=== PATIENT | male | born 1995 | race Caucasian/White ===

== ENCOUNTER 2017-12-09 00:37 | Emergency (ER) | payer OTHER ==
[~2017-12-09 00:37] MED LIST: AUG500 PO; CLI150 PO; DON PO; FLUT16SP19; NO CURRENT MEDS
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
[2017-12-09] MEDS ORDERED: DIPHTH/TETANUS/ACEL. PERTUSSIS IM ONLY ONE (00:50)
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
[2017-12-09 02:00] VITALS: BP 112/58
[2017-12-09] MEDS ORDERED: CEPH500T7 PO (02:02)
[2017-12-09] MEDS ORDERED: HYDR-4309 PO (02:02)
[2017-12-09] MEDS ORDERED: CEPHALEXIN MONO 500 MG CAP PO ONE (02:05)
== END 2017-12-09 02:15 | disposition home or self-care (01) ==
LOC: ER 00:47
DX: S02.2XXA Fracture of nasal bones, initial encounter for closed fracture (principal); S00.83XA Contusion of other part of head, initial encounter; F10.920 Alcohol use, unspecified with intoxication, uncomplicated; Y90.8 Blood alcohol level of 240 mg/100 ml or more; Y04.8XXA Assault by other bodily force, initial encounter
CPT/HCPCS: 70450; 70486; 72125; 80320; 90715; 99283

== ENCOUNTER 2017-12-15 00:42 | Day surgery (SDC) | payer OTHER ==
[~2017-12-15] VITALS: Ht 162.6 cm; Wt 77.1 kg
[~2017-12-15 00:42] MED LIST changes: +CEPH500T7 PO; +HYDR-4309 PO
[2017-12-15 05:53] VITALS: BP 130/79
[2017-12-15] MEDS ORDERED: FAMOTIDINE 20 MG TAB PO ONE (06:15)
[2017-12-15] MEDS ORDERED: MIDAZOLAM 2 MG/2 ML VIAL IVP ONE (06:15)
[2017-12-15] MEDS ORDERED: MIDAZOLAM 2 MG/2 ML VIAL IVP PRN (06:15)
[2017-12-15] MEDS ORDERED: LIDOCAINE/SOD BICARB 8.4% SYR ID ONE (06:15)
[2017-12-15] MEDS ORDERED: NORMOSOL R SOLN(*) 1000 ML BAG 1,000 ML IV PRN (06:15)
[2017-12-15] MEDS ORDERED: BACITRACIN OINT 15 GM TUBE TP ONE (06:35)
[2017-12-15] MEDS ORDERED: MIDAZOLAM 2 MG/2 ML VIAL ONE (06:35)
[2017-12-15] MEDS ORDERED: OXYMETAZOLINE SPRAY 15 ML BTL ONE (06:35)
[2017-12-15] MEDS ORDERED: fentaNYL CITR 100 MCG/2 ML AMP ONE ×2 (06:35→07:49)
[2017-12-15] MEDS ORDERED: ONDANSETRON 4 MG/2 ML VIAL ONE (06:36)
[2017-12-15] MEDS ORDERED: PROPOFOL EMUL(*) 10MG/ML 20 ML 20 ML ONE (06:36)
[2017-12-15] MEDS ORDERED: DEXAMETHASONE SOD PHOS 10MG/ML ONE (06:36)
[2017-12-15] MEDS ORDERED: LIDOCAINE MPF 1% 5 ML VIAL ONE (06:36)
[2017-12-15] MEDS ORDERED: ceFAZolin(*) 2GM/D5W 50ML 50 ML IVPB ONE (07:05)
[2017-12-15] MEDS ORDERED: KETAMINE HCL 200 MG/20 ML MDV ONE (07:07)
[2017-12-15] MEDS ORDERED: HYDR-4309 PO (07:44)
[2017-12-15] MEDS ORDERED: CEFU500T10 PO (07:59)
[2017-12-15] MEDS ORDERED: APAP/HYDROCODONE 325/5 TAB ONE (08:29)
[2017-12-15 08:45] VITALS: BP 104/49
[2017-12-15 09:00] VITALS: BP 117/74
[2017-12-15 09:15] VITALS: BP 118/62
[2017-12-15 09:31] VITALS: BP 112/63
[2017-12-15 09:33] VITALS: BP 105/59
--- NOTE | 2017-12-15 14:02 | OPERATIVE REPORT 1 ---
EVENT DATE: December 15, 2017 SURGEON: Bo Sykes MD ANESTHESIOLOGIST: Danny Thibodeaux MD ANESTHESIA: LMA PROCEDURE Closed reduction of a nasal fracture. PREOPERATIVE DIAGNOSIS Nasal fracture. POSTOPERATIVE DIAGNOSIS Nasal fracture. INDICATIONS Please refer to the preoperative note. DESCRIPTION OF PROCEDURE The patient was positively identified in the preoperative area. He was accompanied there by his father. Risks were again explained, including, but not limited to, bleeding, infection, poor cosmetic result, and those associated with anesthesia. He acknowledged understanding of those risks. He was then brought back to the operative suite, laid supine on the operative table and anesthesia was administered. Once asleep, the patient was positioned, then prepped and draped in usual sterile fashion. The patient had a depressed nasal fracture. This was manually reduced into the midline with a Cain bar. A rigid [place] splint was then placed externally. The patient was then turned to anesthesia for emergence. ESTIMATED BLOOD LOSS 10 mL. COMPLICATIONS No complications. MTDD
== END 2017-12-15 08:35 | disposition home or self-care (01) ==
LOC: OR 00:42
PROVIDERS: ATTEND Otolaryngology
DX: S02.2XXA Fracture of nasal bones, initial encounter for closed fracture (principal)
CPT/HCPCS: 21315; J1100; J2001; J2250; J2704; J3010; J3490; J0690; J2405

== ENCOUNTER 2019-02-15 21:32 | Emergency (ER) | payer OTHER ==
[~2019-02-15 21:32] MED LIST changes: +CEFU500T10 PO; -HYDR-4309 PO; +HYDR-653 PO
--- NOTE | 2019-02-15 21:34 | ER Report ---
History and Physical Time Seen By MD: 21:31 HPI/ROS CHIEF COMPLAINT: Vomiting HISTORY OF PRESENT ILLNESS: 23-year-old male presents to the ER after vomiting all day long. He's been unable to keep anything down since midnight last night. He began vomiting this morning. He's tried to drink water several times and it always comes back up. He's had no diarrhea, fever or chills. He notes occasional clamminess after vomiting. Patient was out eating barbecue last night. He does not think he ate any bad food. He denies exposure to ill con tacts. He notes occasional crampy abdominal pain without exacerbating or alleviating factors. Patient denies dysuria. Patient's had no previous abdominal surgery. REVIEW OF SYSTEMS: Respiratory: No cough, no dyspnea. Cardiovascular: No chest pain, no palpitations. Gastrointestinal: As above Musculoskeletal: No back pain. Allergies: Coded Allergies: No Known Allergies (Unverified Allergy, Mild, 02/15/19) Home Meds Active Scripts Hydrocodone Bit/Acetaminophen (HYDROCODON-ACETAMINOPHEN 5-325) 1 Each Tablet, 1 EACH PO Q4-6H PRN for PAIN, #12 TAKE ONE TABLET BY MOUTH EVERY 4-6 HOURS NEEDED FOR PAIN Prov:SHIELA GURADADO DO 02/15/19 Ondansetron 4 Mg Odt (ONDANSETRON 4 MG ODT) 4 Mg Tab.rapdis, 4 MG PO Q6H PRN for NAUSEA/VOMITING, #12 TAB Prov:SHIELA GUARDADO DO 02/15/19 Promethazine Hcl (PROMETHAZINE HCL) 25 Mg Tablet, 25 MG PO Q4H PRN for NAUSEA/VOMITING, #14 TAB Prov:SHIELA GUARDADO DO 02/15/19 Fluticasone Prop 50 Mcg Ns (FLONASE 50 MCG NS) 16 Gm Jud.susp, 2 SPRAYS NA QDAY for 30 Days, #1 BOT Prov:ANTOLIN SANTOS JR, MD 07/18/17 Reported Medications Cefuroxime Axetil (CEFUROXIME) 500 Mg Tablet, 500 MG PO BID, #16 TAB 0 Refills 12/15/17 Hydrocodone Bit/Acetaminophen (NORCO 5-325 TABLET) 1 Each Tablet, 1-2 EACH PO Q4D PRN for PAIN, #30 TAB 0 Refills 12/15/17 Hx Smoking: Yes Smoking Status: Former Smoker Exposure to Second Hand Smoke?: No Hx Alcohol Use: Yes Constitutional Vital Sign - Last 24 Hours 02/15/19 02/15/19 02/15/19 02/15/19 21:38 21:39 21:47 22:00 Temp 99.4 Pulse 89 82 Resp 14 B/P (MAP) 138/84 (102) 138/84 127/55 (79) Pulse Ox 91 88 O2 Delivery Room Air 02/15/19 02/15/19 02/15/19 02/15/19 22:02 22:17 22:30 22:32 Pulse 92 89 ??? B/P (MAP) 102/57 (72) Pulse Ox 91 90 Physical Exam General Appearance: The patient is alert, has no immediate need for airway protection and no current signs of toxicity. Vital signs stable, low-grade temp 99 for HEENT: Pupils equal and round no injection. Oropharynx without redness or exudate, mucous. Membranes are moist Respiratory: Chest is non tender, lungs are clear to auscultation. Cardiac: regular rate and rhythm Gastrointestinal: Abdomen is soft and non tender, no masses, bowel sounds normal. Musculoskeletal: Neck: Neck is supple and non tender. Extremities have full range of motion and are non tender. Skin: No rashes or lesions. DIFFERENTIAL DIAGNOSIS: After history and physical exam differential diagnosis was considered for abdominal pain including but not limited to appendicitis, cholecystitis, gastroenteritis, food poisoning, viral syndrome gastritis and urinary tract infection. Medical Decision Making Data Points Result Diagram: 02/15/19215002/15/192150 Laboratory Hematology Test 02/15/19 21:51 02/15/19 22:33 Red Blood Count 5.83 M/uL (4.00-5.60) Mean Corpuscular Volume 95.1 fL (80.0-96.0) Mean Corpuscular Hemoglobin 33.1 pg (26.0-33.0) Mean Corpuscular Hemoglobin Concent 34.8 g/dL (32.0-36.0) Red Cell Distribution Width 13.0 % (11.5-14.5) Mean Platelet Volume 8.8 fL (7.2-11.1) Neutrophils (%) (Auto) 92.8 % (39.4-72.5) Lymphocytes (%) (Auto) 2.9 % (17.6-49.6) Monocytes (%) (Auto) 4.1 % (4.1-12.4) Eosinophils (%) (Auto) 0.0 % (0.4-6.7) Basophils (%) (Auto) 0.2 % (0.3-1.4) Nucleated RBC Relative Count (auto) 0.0 /100WBC Neutrophils # (Auto) 15.2 K/uL (2.0-7.4) Lymphocytes # (Auto) 0.5 K/uL (1.3-3.6) Monocytes # (Auto) 0.7 K/uL (0.3-1.0) Eosinophils # (Auto) 0.0 K/uL (0.0-0.5) Basophils # (Auto) 0.0 K/uL (0.0-0.1) Nucleated RBC Absolute Count (auto) 0.00 K/uL Sodium Level 134 mmol/L (137-145) Potassium Level 4.2 mmol/L (3.5-5.0) Chloride Level 91 mmol/L (98-107) Carbon Dioxide Level 17 mmol/L (22-30) Blood Urea Nitrogen 15 mg/dl (9-21) Creatinine 1.10 mg/dl (0.66-1.25) Glomerular Filtration Rate Calc > 60.0 Random Glucose 177 mg/dl (75-110) Calcium Level 9.6 mg/dl (8.4-10.2) Total Bilirubin 1.5 mg/dl (0.2-1.3) Aspartate Amino Transf (AST/SGOT) 34 U/L (0-35) Alanine Aminotransferase (ALT/SGPT) 36 U/L (0-56) Alkaline Phosphatase 73 U/L (0-126) Total Protein 8.1 g/dl (6.3-8.2) Albumin 5.3 g/dl (3.5-5.0) Amylase Level 183 U/L (0-110) Lipase 427 U/L (23-300) Urine Color Yellow Urine Clarity Clear Urine pH 5.0 pH (4.8-9.5) Urine Specific [place] 1.019 Urine Protein Negative mg/dL (NEGATIVE) Urine Glucose (UA) Negative mg/dL (NEGATIVE) Urine Ketones 80 mg/dL (NEGATIVE) Urine Blood Negative (NEGATIVE) Urine Nitrite Negative (NEGATIVE) Urine Bilirubin Negative (NEGATIVE) Urine Urobilinogen Negative mg/dL (0.2-1.9) Urine Leukocyte Esterase Negative (NEGATIVE) Urine RBC <1 /HPF (0-2/HPF) Urine WBC 3 /HPF (0-5/HPF) Urine Squamous Epithelial Cells None /LPF (</=FEW) Urine Bacteria Negative /HPF (NONE-FEW) Urine Hyaline Casts Few /LPF (NONE-FEW) Urine Mucus None /HPF (NONE-FEW) Chemistry Test 02/15/19 21:51 02/15/19 22:33 White Blood Count 16.4 k/uL (4.5-11.0) Red Blood Count 5.83 M/uL (4.00-5.60) Hemoglobin 19.3 g/dL (14.0-18.0) Hematocrit 55.4 % (42.0-52.0) Mean Corpuscular Volume 95.1 fL (80.0-96.0) Mean Corpuscular Hemoglobin 33.1 pg (26.0-33.0) Mean Corpuscular Hemoglobin Concent 34.8 g/dL (32.0-36.0) Red Cell Distribution Width 13.0 % (11.5-14.5) Platelet Count 227 K/uL (150-450) Mean Platelet Volume 8.8 fL (7.2-11.1) Neutrophils (%) (Auto) 92.8 % (39.4-72.5) Lymphocytes (%) (Auto) 2.9 % (17.6-49.6) Monocytes (%) (Auto) 4.1 % (4.1-12.4) Eosinophils (%) (Auto) 0.0 % (0.4-6.7) Basophils (%) (Auto) 0.2 % (0.3-1.4) Nucleated RBC Relative Count (auto) 0.0 /100WBC Neutrophils # (Auto) 15.2 K/uL (2.0-7.4) Lymphocytes # (Auto) 0.5 K/uL (1.3-3.6) Monocytes # (Auto) 0.7 K/uL (0.3-1.0) Eosinophils # (Auto) 0.0 K/uL (0.0-0.5) Basophils # (Auto) 0.0 K/uL (0.0-0.1) Nucleated RBC Absolute Count (auto) 0.00 K/uL Glomerular Filtration Rate Calc > 60.0 Calcium Level 9.6 mg/dl (8.4-10.2) Total Bilirubin 1.5 mg/dl (0.2-1.3) Aspartate Amino Transf (AST/SGOT) 34 U/L (0-35) Alanine Aminotransferase (ALT/SGPT) 36 U/L (0-56) Alkaline Phosphatase 73 U/L (0-126) Total Protein 8.1 g/dl (6.3-8.2) Albumin 5.3 g/dl (3.5-5.0) Amylase Level 183 U/L (0-110) Lipase 427 U/L (23-300) Urine Color Yellow Urine Clarity Clear Urine pH 5.0 pH (4.8-9.5) Urine Specific [place] 1.019 Urine Protein Negative mg/dL (NEGATIVE) Urine Glucose (UA) Negative mg/dL (NEGATIVE) Urine Ketones 80 mg/dL (NEGATIVE) Urine Blood Negative (NEGATIVE) Urine Nitrite Negative (NEGATIVE) Urine Bilirubin Negative (NEGATIVE) Urine Urobilinogen Negative mg/dL (0.2-1.9) Urine Leukocyte Esterase Negative (NEGATIVE) Urine RBC <1 /HPF (0-2/HPF) Urine WBC 3 /HPF (0-5/HPF) Urine Squamous Epithelial Cells None /LPF (</=FEW) Urine Bacteria Negative /HPF (NONE-FEW) Urine Hyaline Casts Few /LPF (NONE-FEW) Urine Mucus None /HPF (NONE-FEW) Urinalysis Test 02/15/19 22:33 Urine Color Yellow Urine Clarity Clear Urine pH 5.0 pH (4.8-9.5) Urine Specific [place] 1.019 Urine Protein Negative mg/dL (NEGATIVE) Urine Glucose (UA) Negative mg/dL (NEGATIVE) Urine Ketones 80 mg/dL (NEGATIVE) Urine Blood Negative (NEGATIVE) Urine Nitrite Negative (NEGATIVE) Urine Bilirubin Negative (NEGATIVE) Urine Urobilinogen Negative mg/dL (0.2-1.9) Urine Leukocyte Esterase Negative (NEGATIVE) Urine RBC <1 /HPF (0-2/HPF) Urine WBC 3 /HPF (0-5/HPF) Urine Squamous Epithelial Cells None /LPF (</=FEW) Urine Bacteria Negative /HPF (NONE-FEW) Urine Hyaline Casts Few /LPF (NONE-FEW) Urine Mucus None /HPF (NONE-FEW) ED Course/Re-evaluation Clinical Indication for ER IV: Hydration, IV Access ED Course Patient was admitted to an examination room. H&P was done. The differential diagnoses was considered. On conical examination. Patient has epigastric pain. He's had persistent vomiting for several hours. He is treated with IV fluid hydration. Diagnostic studies are sent off. Patient laboratory studies show an elevated white blood cell count of 16,000 with a mild elevation of his lipase suggesting mild pancreatitis. Patient's discharged home on Zofran, and hydrocodone for pain relief. He is advised a clear liquid diet for 48 hours. P atient's advised to follow-up with primary care for outpatient ultrasound of his right upper quadrant and CT scan to better delineate the etiology of his pancreatitis. Decision to Disposition Date: Feb 15, 2019 Decision to Disposition Time: 22:20 Depart Departure Latest Vital Signs Vital Signs Date Time Temp Pulse Resp B/P (MAP) Pulse Ox O2 Delivery O2 Flow Rate FiO2 02/15/19 22:32 ??? 02/15/19 22:30 102/57 (72) 02/15/19 22:17 90 02/15/19 21:39 99.4 14 Room Air Impression: Primary Impression: Pancreatitis Condition: Improved Disposition: HOME OR SELF-CARE Referrals: ALEKSANDRA SPANN MD, FARRUKH MD New Scripts Hydrocodone Bit/Acetaminophen (HYDROCODON-ACETAMINOPHEN 5-325) 1 Each Tablet 1 EACH PO Q4-6H PRN for PAIN, #12 TAKE ONE TABLET BY MOUTH EVERY 4-6 HOURS NEEDED FOR PAIN Prov: SHIELA GUARDADO DO 02/15/19 Ondansetron 4 Mg Odt (ONDANSETRON 4 MG ODT) 4 Mg Tab.rapdis 4 MG PO Q6H PRN for NAUSEA/VOMITING, #12 TAB Prov: SHIELA GUARDADO DO 02/15/19 Promethazine Hcl (PROMETHAZINE HCL) 25 Mg Tablet 25 MG PO Q4H PRN for NAUSEA/VOMITING, #14 TAB Prov: SHIELA GUARDADO DO 02/15/19 Patient Instructions: Pancreatitis (ED) Additional Instructions: Follow-up with your primary care doctor [facility] or the new doctor listed on your paperwork You will need an ultrasound and potentially a CAT scan to better delineate the cause of your pancreatitis Problem Qualifiers Primary Impression: Pancreatitis Chronicity: acute Pancreatitis type: unspecified pancreatitis type Acute pancreatitis complication: unspecified Qualified Codes: K85.90 - Acute pancreatitis without necrosis or infection, unspecified SHIELA GUARDADO DO Feb 15, 2019 21:34
[2019-02-15] MEDS ORDERED: NS(*) 0.9% 1000 ML BAG 1,000 ML IV ONE (21:43)
[2019-02-15] MEDS ORDERED: ONDANSETRON 4 MG/2 ML VIAL IVP ONE (21:45)
[2019-02-15] MEDS ORDERED: PROMETHAZINE 25 MG/ML 1 ML AMP IVP ONE (21:45)
[2019-02-15 22:02] LABS: PLATELET COUNT, AUTOMATED 227 K/uL (150-450)
[2019-02-15 22:30] VITALS: BP 102/57
[2019-02-15] MEDS ORDERED: LOR5/325 PO (22:49)
[2019-02-15] MEDS ORDERED: ONDA4TAB9 PO (22:49)
[2019-02-15] MEDS ORDERED: PROM-110 PO (22:49)
[2019-02-15] MEDS ORDERED: PROMETHAZINE HCL 25 MG TAB TH 2 TAB/BOTTLE PO ONE (22:50)
[2019-02-15] MEDS ORDERED: ONDANSETRON 4 MG ODT TH SL ONE (22:50)
[2019-02-15] MEDS ORDERED: ACET/HYDROC 5/325MG TH ER ONLY 2 TAB/BOTTLE PO ONE (22:50)
== END 2019-02-15 22:57 | disposition home or self-care (01) ==
LOC: ER 21:36
DX: K85.90 Acute pancreatitis without necrosis or infection, unspecified (principal); Z79.899 Other long term (current) drug therapy; Z87.891 Personal history of nicotine dependence
CPT/HCPCS: 81001; 82150; 83690; 85025; 96374; 99283; J2405; J2550; J7030; 82040; 82247; 82310; 82374; 82435; 82565; 82947; 84075; 84132; 84155; 84295; 84450; 84460; 84520

== ENCOUNTER 2019-03-10 09:05 | Emergency (ER) | payer OTHER ==
[~2019-03-10 09:05] MED LIST changes: +LOR5/325 PO; +ONDA4TAB9 PO; +PROM-110 PO
--- NOTE | 2019-03-10 09:09 | ER Report ---
History and Physical Time Seen By MD: 09:05 HPI/EVELIO CHIEF COMPLAINT: BH evaluation HISTORY OF PRESENT ILLNESS: Patient is a 23-year-old male with no prior psychiatric evaluations or admissions with past history for suicidal ideation with plan tissue himself with a rapid he owns. He is brought into the emergency department accompanied by his mother and younger brother with concerns of suicidal ideation. Patient states he's had thoughts of suicide with plan to shoot himself that increased when he is drinking. Patient states he was drinking last evening. 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 He states that approximately one year ago he had a prior suicide attempt by attempting to shoot himself although did not actually the trigger. He states that he drinks heavily and binge drinks and once he starts drinking he cannot stop. He denies any significant past medical history other than prior ER evaluation for mild pancreatitis likely again due to alcohol use. Patient is single and currently lives by himself. REVIEW OF SYSTEMS: Constitutional: No fever, no chills. Eyes: No discharge. ENT: No sore throat. Cardiovascular: No chest pain, no palpitations. Respiratory: No cough, no shortness of breath. Gastrointestinal: No abdominal pain, no vomiting. Musculoskeletal: No back pain. Skin: No rashes. Neurological: No headache. Psych: Suicidal thoughts Allergies: Coded Allergies: No Known Allergies (Unverified Allergy, Mild, 03/10/19) Home Meds Discontinued Reported Medications Cefuroxime Axetil (CEFUROXIME) 500 Mg Tablet, 500 MG PO BID, #16 TAB 0 Refills 12/15/17 Hydrocodone Bit/Acetaminophen (NORCO 5-325 TABLET) 1 Each Tablet, 1-2 EACH PO Q4D PRN for PAIN, #30 TAB 0 Refills 12/15/17 Discontinued Scripts Hydrocodone Bit/Acetaminophen (HYDROCODON-ACETAMINOPHEN 5-325) 1 Each Tablet, 1 EACH PO Q4-6H PRN for PAIN, #12 TAKE ONE TABLET BY MOUTH EVERY 4-6 HOURS NEEDED FOR PAIN Prov:SHIELA GUARDADO DO 02/15/19 Ondansetron 4 Mg Odt (ONDANSETRON 4 MG ODT) 4 Mg Tab.rapdis, 4 MG PO Q6H PRN for NAUSEA/VOMITING, #12 TAB Prov:SHIELA GUARDADO DO 02/15/19 Promethazine Hcl (PROMETHAZINE HCL) 25 Mg Tablet, 25 MG PO Q4H PRN for NAUSEA/VOMITING, #14 TAB Prov:SHIELA GUARDADO DO 02/15/19 Fluticasone Prop 50 Mcg Ns (FLONASE 50 MCG NS) 16 Gm [place].susp, 2 SPRAYS NA QDAY for 30 Days, #1 BOT Prov:ANTOLIN SANTOS JR, MD 07/18/17 Past Medical/Surgical History History of pancreatitis Hx Smoking: Yes Smoking Status: Former Smoker Exposure to Second Hand Smoke?: No Hx Substance Use Disorder: No Hx Alcohol Use: Yes Constitutional Vital Sign - Last 24 Hours 03/10/19 09:08 Temp 97.6 Pulse 91 Resp 16 B/P (MAP) 140/91 Pulse Ox 98 O2 Delivery Room Air Physical Exam General/Constitutional: Patient is awake, alert, nontoxic and in no acute respiratory distress. Head: Normocephalic and atraumatic. Eyes: Conjunctival clear, Pupils are equal and reactive to light. Sclera are clear and anicteric. Ears:External canals are clear. Tympanic membranes are clear with normal l andmarks and light reflex. Nares: No rhinorrhea or bleeding. Turbinates are pink and moist. Oropharyngeal: Mucous membranes are moist. There is no pharyngeal erythema or exudate. There are no palatal petechiae. Uvula is midline and symmetrical. Neck: Supple, no adenopathy. Cardiovascular: Heart is regular rate and rhythm without audible murmurs, rubs or gallops. Pulmonary: Lungs are clear to auscultation bilaterally. There are no wheezes, rales, or rhonchi. Chest rise is symmetrical Abdomen: Soft, nontender, no guarding or peritoneal signs. Extremities: No gross deformities, No peripheral cyanosis. Able to move all 4 extremities. Patient does have bruises in multiple stages of eruption to the upper extremities back also patient does appear to hear well healed superficial lacerations to forearms Neuro: Alert and oriented X3 Skin: No rashes, skin is warm dry and well perfused. Psych: Patient with suicidal ideation plan to shoot himself with a weapon that he currently owns. Patient is tearful and somber so it is congruent with affect. His thought process is logical and goal-directed. He is cooperative and is aware of the seriousness of his thought process. He does not currently appear intoxicated. He does not seem to be responding to any internal stimuli. Medical Decision Making Data Points Result Diagram: 03/10/19 1002 03/10/19 1002 Laboratory Hematology Test 03/10/19 10:02 White Blood Count 8.6 k/uL (4.5-11.0) Red Blood Count 5.34 M/uL (4.00-5.60) Hemoglobin 17.8 g/dL (14.0-18.0) Hematocrit 50.5 % (42.0-52.0) Mean Corpuscular Volume 94.6 fL (80.0-96.0) Mean Corpuscular Hemoglobin 33.3 pg (26.0-33.0) H Mean Corpuscular Hemoglobin Concent 35.2 g/dL (32.0-36.0) Red Cell Distribution Width 13.3 % (11.5-14.5) Platelet Count 215 K/uL (150-450) Mean Platelet Volume 8.9 fL (7.2-11.1) Neutrophils (%) (Auto) 68.4 % (39.4-72.5) Lymphocytes (%) (Auto) 21.8 % (17.6-49.6) Monocytes (%) (Auto) 8.0 % (4.1-12.4) Eosinophils (%) (Auto) 1.3 % (0.4-6.7) Basophils (%) (Auto) 0.5 % (0.3-1.4) Nucleated RBC Relative Count (auto) 0.1 /100WBC Neutrophils # (Auto) 5.9 K/uL (2.0-7.4) Lymphocytes # (Auto) 1.9 K/uL (1.3-3.6) Monocytes # (Auto) 0.7 K/uL (0.3-1.0) Eosinophils # (Auto) 0.1 K/uL (0.0-0.5) Basophils # (Auto) 0.0 K/uL (0.0-0.1) Nucleated RBC Absolute Count (auto) 0.01 K/uL Chemistry Test 03/10/19 10:02 Sodium Level 138 mmol/L (137-145) Potassium Level 3.7 mmol/L (3.5-5.0) Chloride Level 105 mmol/L (98-107) Carbon Dioxide Level 20 mmol/L (22-30) Blood Urea Nitrogen 10 mg/dl (9-21) Creatinine 0.80 mg/dl (0.66-1.25) Glomerular Filtration Rate Calc > 60.0 Random Glucose 98 mg/dl (75-110) Calcium Level 8.6 mg/dl (8.4-10.2) Magnesium Level 2.1 mg/dl (1.7-2.2) Total Bilirubin 0.4 mg/dl (0.2-1.3) Aspartate Amino Transf (AST/SGOT) 57 U/L (0-35) Alanine Aminotransferase (ALT/SGPT) 38 U/L (0-56) Alkaline Phosphatase 70 U/L (0-126) Total Protein 7.1 g/dl (6.3-8.2) Albumin 4.6 g/dl (3.5-5.0) Toxicology Test 03/10/19 10:02 03/10/19 10:18 Salicylates Level < 10 mg/L Salicylate Last Dose Date unk Acetaminophen Level < 10 ug/ml Serum Alcohol 104 mg/dl Urine Opiates Screen Negative Urine Barbiturates Screen Negative Ur Tricyclic Antidepressants Screen Negative Urine Phencyclidine Screen Negative Urine Amphetamines Screen Negative Urine Benzodiazepines Screen Negative Urine Cocaine Screen Negative Urine Cannabinoids Screen Positive Urinalysis Test 03/10/19 10:18 Urine Color Yellow Urine Clarity Clear Urine pH 5.0 pH (4.8-9.5) Urine Specific [place] 1.018 Urine Protein Negative mg/dL (NEGATIVE) Urine Glucose (UA) Negative mg/dL (NEGATIVE) Urine Ketones Trace mg/dL (NEGATIVE) Urine Blood Negative (NEGATIVE) Urine Nitrite Negative (NEGATIVE) Urine Bilirubin Negative (NEGATIVE) Urine Urobilinogen Negative mg/dL (0.2-1.9) Urine Leukocyte Esterase Negative (NEGATIVE) Urine RBC <1 /HPF (0-2/HPF) Urine WBC 3 /HPF (0-5/HPF) Urine Squamous Epithelial Cells Few /LPF (</=FEW) Urine Bacteria Negative /HPF (NONE-FEW) Urine Hyaline Casts Few /LPF (NONE-FEW) Urine Mucus None /HPF (NONE-FEW) ED Course/Re-evaluation ED Course 03/10/2019 9:29:55 am patient is high risk for self-harm he is agreeable to voluntary admission however if this were to change I would step in and intervene and do a title 25. We will perform medical screening examination along with blood work and then I will call to discuss the case with the on-call psychiatrist. Decision to Disposition Date: Mar 10, 2019 Decision to Disposition Time: 11:26 Depart Departure Latest Vital Signs Vital Signs Date Time Temp Pulse Resp B/P (MAP) Pulse Ox O2 Delivery O2 Flow Rate FiO2 03/10/19 09:08 97.6 91 16 140/91 98 Room Air Impression: Primary Impression: Alcohol intoxication Additional Impression: Suicidal intent Condition: Improved Disposition: [facility] (To Dr Rogel) Problem Qualifiers Primary Impression: Alcohol intoxication Complication of substance-induced condition: uncomplicated Qualified Codes: F10.920 - Alcohol use, unspecified with intoxication, uncomplicated MATEUSZ HERNÁNDEZ MD Mar 10, 2019 09:09
[2019-03-10 10:17] LABS: PLATELET COUNT, AUTOMATED 215 K/uL (150-450)
--- NOTE | 2019-03-10 10:27 | EKG ---
FACILITY: [facility] PATIENT NAME: SUSANNE ORTEGA : [id number] MR: [id number] V: [id number] EXAM DATE: ORDERING PHYSICIAN: MATEUSZ HERNÁNDEZ TECHNOLOGIST: JIMMY Test Reason : PSYCH Blood Pressure : / mmHG Vent. Rate : 071 BPM Atrial Rate : 071 BPM P-R Int : 148 ms QRS Dur : 096 ms QT Int : 372 ms P-R-T Axes : 054 100 025 degrees QTc Int : 404 ms Normal sinus rhythm Poor R wave progression Abnormal ECG No previous ECGs available Confirmed by LATISHA SUMMERS ([id number]) on 03/10/2019 9:49:42 PM Referred By: BETTY Confirmed By:LATSIHA SUMMERS
== END 2019-03-10 11:58 ==
LOC: ER 09:07 → EDBEDREQSVC 11:32 → ER 11:58
DX: F10.920 Alcohol use, unspecified with intoxication, uncomplicated (principal); R45.851 Suicidal ideations; R94.31 Abnormal electrocardiogram [ECG] [EKG]
CPT/HCPCS: 80305; 80320; 80329; 81001; 82040; 82247; 82310; 82374; 82435; 82565; 82947; 83735; 84075; 84132; 84155; 84295; 84443; 84450; 84460; 84520; 85025; 93005; 99284

== ENCOUNTER 2019-03-10 11:36 | Inpatient (IN) | payer OTHER ==
[~2019-03-10] VITALS: Ht 162.6 cm; Wt 64.4 kg
[2019-03-10 11:50] VITALS: BP 108/66
[2019-03-10] MEDS ORDERED: ACETAMINOPHEN 325 MG TAB PO PRN (12:15)
[2019-03-10] MEDS ORDERED: IBUPROFEN 600 MG TAB PO PRN (12:15)
[2019-03-10] MEDS ORDERED: MAG HYD/AL HYD/SIMETH 30ML UDC PO PRN (12:15)
[2019-03-10] MEDS: FLUoxetine HCL 20 MG CAP PO SCH (13:54)
[2019-03-10 16:08] VITALS: BP 138/60
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
[2019-03-11 06:08] VITALS: BP 118/64
[2019-03-11] MEDS: FLUoxetine HCL 20 MG CAP PO SCH (08:14)
[2019-03-11] MEDS: MULTIVITAMINS TAB PO SCH (08:14)
[2019-03-11] MEDS: FOLIC ACID 1 MG TAB PO SCH (08:14)
[2019-03-11] MEDS: THIAMINE HCL 100 MG TAB PO SCH (08:14)
[2019-03-11 11:25] VITALS: BP 128/67
--- NOTE | 2019-03-11 11:41 | BHS Progress Note ---
[facility] - Subjective Progress Notes Subjective Patient cooperative today and interacting well with his mother as well as behavioral treatment team staff. Patient reports his mood is improving and rates it a 7/10 today to the good. Patient tearful when reflecting on events that lead up to admission. Alcohol withdrawal not seemingly clinically relevant. Patient was able to discuss the possible negatives of alcohol and cannabis in his life, but does seem not to credit substance use with the amount of negative influence that they have in his life. [facility] No other concerns today, will likely discharge tomorrow. Suicidal Ideation: None Homicidal Ideation: None [facility] - Objective Physical Exam Vital Signs Vital Signs Date Time Temp Pulse Resp B/P (MAP) Pulse Ox O2 Delivery O2 Flow Rate FiO2 03/11/19 11:25 98.6 62 128/67 (87) 96 Room Air 03/10/19 16:08 12 Muscle Strength and Tone: WNL Gait and Station: Steady [facility] Medications Reviewed: Side Effects, Benefits of Medication, Risks Allergies Reviewed: Yes Mental Status Exam General Appearance: Casual, Well Groomed, Good Eye Contact, Cooperative, Polite, Good Interaction, Tearful (breifly); No Psychomotor Agitation, No Psychomotor Retardation, No Bizarre Mannerisms, No Tics Speech: Clear, Spontaneous, Normal Rate, Normal Rhythm, Normal Volume, Normal Tone; No Slurred, No Garbled, No Rambling, No Inappropriate Mood: Dysthmic/Depressed (reports mood improving quickly in absence of alcohol use. ) Affect: Full and Appropriate, Calm; No Withdrawn, No Tearful, No Anxious, No Agitated Thought Process: Organized, Logical, Goal Directed; No Loose Associations, No Flight of Ideas Thought Content: Suicidal Ideation (denies today); No Homicidal Ideation, No Delusions, No Auditory Halllucinations (Mother reports mild psychotic symptoms when patient under the influence of alcohol and cannabis. ), No Visual Halluc inations, No Thought Broadcasting, No Ideas of Reference, No Obsessions, No Compulsions Sensorium: Clear Cognition: Alert & Oriented-Person, Alert & Oriented-Place, Alert & Oriented- Time, [id number] Memory: Immediate, Recent, Remote Intelligence: Average Insight Judgment: Fair (improving and deemed intact in the absence of substance use. ) [facility] Assessment and Plan [id number] Encounter Date: Mar 11, 2019 [id number] Encounter Time: 09:30 [facility] Plan: Necessary Precautions, Individual/Group Therapy, Admin/Titrate Meds, Educate Patient Tobacco Medications: Started Multpiple Antipsychotics Used: No Problems: (1) Substance induced mood disorder Status: Acute (2) Alcohol use disorder, severe, in controlled environment Status: Chronic (3) Cannabis use disorder, severe, in controlled environment Status: Chronic (4) Persistent depressive disorder Status: Chronic Condition 1. continue treatment. 2. no medication changes. 3. AA to visit today. XOCHILT QUINTEROS MD Mar 11, 2019 11:41
[2019-03-11] MEDS ORDERED: NICOTINE POLACRILEX 2 MG GUM PO PRN (12:25)
[2019-03-11 20:11] VITALS: BP 130/68
[2019-03-12 03:43] VITALS: BP 123/62
[2019-03-12] MEDS: FOLIC ACID 1 MG TAB PO SCH (08:10)
[2019-03-12] MEDS: FLUoxetine HCL 20 MG CAP PO SCH (08:10)
[2019-03-12] MEDS: THIAMINE HCL 100 MG TAB PO SCH (08:10)
[2019-03-12] MEDS: MULTIVITAMINS TAB PO SCH (08:10)
[2019-03-12] MEDS ORDERED: FLUO-202 PO (09:01)
[2019-03-12] MEDS ORDERED: MULT-1379 PO (09:02)
[2019-03-12] MEDS ORDERED: NICO-219 BC (09:03)
[2019-03-12] MEDS ORDERED: TRAZ150T8 PO (09:03)
--- NOTE | 2019-03-14 11:00 | SCHAAF DISCHARGE ---
DATE OF ADMISSION: March 10, 2019 DATE OF DISCHARGE: March 12, 2019 ATTENDING PHYSICIAN Thanh Hernandez MD Patient was seen at approximately 0830 hours on the a.m. of March 12, 2019 for note concerning this dictation. FINAL DIAGNOSES * Alcohol use disorder, severe. * Persisting depressive disorder. * Cannabis use disorder, moderate. * Substance-induced mood disorder related to intoxication of cannabis and alcohol. * Patient having supportive relationship with mother. REASON FOR ADMISSION This is a pleasant 23-year-old male who has a significant substance-induced mood disorder component to alcohol intoxication as well as cannabis use. Patient was admitted on March 10, 2019 through the emergency room. Patient has a history of substance-induced mood disorder as well as likely underlying persisting depressive disorder. Patient notably had a past medical history of recent pancreatitis as well and resumed drinking. Please see H and P for full details regarding admission. Patient's alcohol withdrawal was treated to completion with diazepam per [facility] protocol. Patient remained on Prozac and Trazodone was started to help with sleep as well as persisting depressive disorder as well. Patient was discharged to home. PHYSICAL EXAMINATION Please see emergency room note. Notable for intoxicated 23-year old male. Vital signs at the time of admission: Temperature 97.6, pulse 91, respiratory rate 16, blood pressure 140/91 and pulse oximetry 98% on room air. Vital signs at the time of discharge from [facility]: Temperature 98.4, pulse 53, respiratory rate 12, blood pressure 123/62 and pulse oximetry 94% on room air. LABORATORY DATA TSH 2.33, in normal range at time of admission. MCH elevated slightly at 33.3 on CBC at time of admission. Otherwise, unremarkable CBC. CMP notable only for AST elevated mildly at 57. Urinalysis showed trace ketones present. Otherwise, unremarkable. Toxicology screen positive for cannabis with a serum alcohol level of 104 upon admission. Negative for other substances of abuse. MENTAL STATUS EXAMINATION GENERAL APPEARANCE, BEHAVIOR AND ATTITUDE: At time of discharge, this is a cooperative, pleasant 23-year-old male stating he understands that he should not drink as he becomes a very different person and very dysphoric upon drinking. No psychomotor agitation, retardation. No periods of tearfulness. Making good eye contact. SPEECH: Within normal limits. Regular rate, rhythm, volume and tone. MOOD: Described as good. AFFECT: Full and bright. THOUGHT PROCESSES: Goal-directed, logical. No loose associations or flight of ideas. THOUGHT CONTENT: Free of auditory or visual hallucinations, ideas of reference, thought broadcastings, delusions, obsessions or compulsions. Patient adamantly denying suicidal or homicidal ideation. SENSORIUM: Clear. COGNITION: Alert and oriented to person, place, time and situation. MEMORY: Immediate, recent and remote was estimated intact. INTELLIGENCE: Average, based on interview. INSIGHT AND JUDGMENT: Considered grossly intact in the absence of alcohol or cannabis use. RESULTS OF TESTING Imaging: None. Laboratory data: See above. CONSULTATIONS None. TREATMENT Patient received medications, participated in individual and group therapy. HOSPITAL COURSE Patient alcohol withdrawal was minimal in nature and treated to completion via diazepam and CIWA protocol. Patient was continued on Prozac 20 mg q.a.m. as well as Trazodone 50 to 150 mg q.h.s. was initiated. Patient took an active role in his treatment, participated in individual and group therapy and remained very calm, pleasant and cooperative on the Unit, demonstrating no parasuicidal behaviors on the Unit. CONDITION OF PATIENT ON DISCHARGE Stable. Considered a minimal risk to himself or others and appropriate for ongoing outpatient care. DISPOSITION The patient was discharged to home. He would followup with appropriate outpatient services as scheduled prior to departure from hospital. Patient was encouraged to attend AA and obtain a sponsor. Given the Crisis Line should symptoms return. Medications at discharge included Prozac 20 mg q.a.m., Trazodone 50 to 150 mg p.o. q.h.s. p.r.n. for insomnia, multi-vitamin with minerals daily and patient could continue [id number] nicotine replacement for help with nicotine withdrawal. The risks, benefits and alternatives of the above discharge plan were discussed. Informed consent was given to proceed with the above discharge plan by this competent patient as well as patient's mother present regarding discharge. CHEO
== END 2019-03-12 10:32 | disposition home or self-care (01) | DRG 897 ==
LOC: BHS 11:36
PROVIDERS: ADMIT Psychiatry & Neurology Psychiatry; ATTEND Psychiatry & Neurology Psychiatry
DX: F10.230 Alcohol dependence with withdrawal, uncomplicated (principal); R45.851 Suicidal ideations; F34.1 Dysthymic disorder; F12.288 Cannabis dependence with other cannabis-induced disorder; F10.24 Alcohol dependence with alcohol-induced mood disorder; Y90.5 Blood alcohol level of 100-119 mg/100 ml; Z91.5 Personal history of self-harm